=== PATIENT | male | born 1980 | race Caucasian/White ===

== ENCOUNTER → 2020-05-06 07:49 | Outpatient (CLI) | payer OTHER, SELFPAY ==
--- NOTE | 2020-05-06 | DI.MRI.S_ITS ---
PROCEDURE: MR CERVICAL SPINE WO CON INDICATIONS: Cervicalgia TECHNIQUE: Noncontrast sagittal T1 spin echo and T2 fast spin echo, sagittal STIR, foraminal oblique sagittal T2 fast spin echo, and axial gradient echo or T2 fast spin echo through the cervical spine. COMPARISON: None. FINDINGS: Image quality: Excellent. Alignment and Curvature: There is normal bony alignment. Bone Marrow: Marrow demonstrates normal overall signal. Spinal Cord: Visualized spinal cord has normal size and signal. No cerebellar tonsillar herniation. Paraspinous Soft Tissues: No paravertebral masses. Prevertebral soft tissues are normal in thickness. C2-C3: Loss of disc signal. No central stenosis. No neural foraminal narrowing. No neural compression. C3-C4: Loss of disc signal. Mild, diffuse disc bulge. No central stenosis. Mild bilateral neural foraminal narrowing. No neural compression. C4-C5: Loss of disc signal and slight loss of disc height. Mild, diffuse disc bulge. Left central /left foraminal disc extrusion. Moderate narrowing of the central canal. Extruded disc material impinges upon the exiting left C5 nerve root. Moderate right and severe left neural foraminal narrowing. C5-C6: Loss of disc signal and slight loss of disc height. Mild, diffuse disc bulge. Moderate-sized central/right central disc extrusion. Extruded disc material causes severe central canal narrowing and compression of the cervical spinal cord. Moderate bilateral neural foraminal narrowing. C6-C7: Loss of disc signal. Mild, diffuse disc bulge. Small right central disc protrusion. Moderate narrowing of the central canal. Moderate bilateral neural foraminal narrowing. No neural compression. C7-T1: Normal appearance. IMPRESSION: 1. Multilevel degenerative disease. 2. C4-C5 left central/left foraminal disc extrusion which impinges on the exiting left C5 nerve root. 3. C5-C6 central/right central disc extrusion which causes severe central canal narrowing and compression of the cervical spinal cord. Dictated by: Rebekah Shelton MD, PhD on 05/06/2020 at 11:46 Approved by: Rebekah Shelton MD, PhD on 05/06/2020 at 12:49
== END ==
PROVIDERS: Referring Provider Student in an Organized Health Care Education/Training Program; Visit Provider Student in an Organized Health Care Education/Training Program
DX: M50.31 Other cervical disc degeneration, high cervical region (principal); M50.221 Other cervical disc displacement at C4-C5 level; M48.02 Spinal stenosis, cervical region
CPT/HCPCS: 72141

== ENCOUNTER 2021-04-02 15:43 | Emergency (ER) | payer OTHER, SELFPAY ==
[2021-04-02 15:57] VITALS: BP 122/78; PULSE 88; RESP 16; TEMP 37.3; O2SAT 96; BMI 26.0
--- NOTE | 2021-04-02 16:02 | DI.RAD.S_ITS ---
PROCEDURE: XR FOOT RT MIN 3V INDICATIONS: Dropped tailgate on foot TECHNIQUE: 3 views of the foot were acquired. COMPARISON: None. FINDINGS: Bones: No fractures or dislocations. Joint spaces are preserved. No suspicious bony lesions. Soft tissues: No tibiotalar joint effusion. Achilles tendon appears normal. IMPRESSION: No acute bony abnormality. Dictated by: Gonzalo Avila M.D. on 04/02/2021 at 15:27 Approved by: Gonzalo Avila M.D. on 04/02/2021 at 15:29
--- NOTE | 2021-04-02 16:49 | ED_ITS ---
HPI - Extremity Injury (Lower) <MONIK Luna Last Filed: 04/02/21 17:04> General Chief Complaint: Extremity Injury, Lower Stated Complaint: Poss RT Foot Break Time Seen by Provider: 04/02/21 16:04 Source: patient Mode of arrival: Ambulatory Limitations: no limitations History of Present Illness HPI Narrative: 40-year-old male with no significant past medical history presents to the ED status post a right foot injury just prior to arrival. Patient endorses dropping a tailgate on the dorsum of his right foot. Patient endorses midfoot pain. Endorses that he was able to ambulate after the injury. Endorses full range of motion. Denies numbness, tingling, weakness. Denies any other injuries. Related Data Allergies Allergy/AdvReac Type Severity Reaction Status Date / Time codeine Allergy Verified 04/02/21 16:39 Review of Systems <MONIK Luna Last Filed: 04/02/21 17:04> Constitutional Constitutional: Denies chills, Denies fever(s), Denies frequent falls, Denies lethargy and Denies weakness ENT Ears, Nose, Mouth, and Throat: Denies dizziness Cardiovascular Cardiovascular: Denies chest pain, Denies irregular heart rhythm, Denies lightheadedness, Denies palpitations, Denies dyspnea, Denies dyspnea on exertion and Denies orthopnea Respiratory Respiratory: Denies cough, Denies dyspnea, Denies dyspnea on exertion and Denies wheezing Gastrointestinal Gastrointestinal: Denies abdominal pain, Denies change in bowel habits, Denies diarrhea, Denies nausea and Denies vomiting Musculoskeletal Musculoskeletal: Denies numbness Comments: R foot pain. No tingling, weakness, numbness Integumentary/Breasts Skin/Breast: Denies pruritus, Denies erythema, Denies rash and Denies wounds Neurologic Neurologic: Denies behavioral changes, Denies confusion, Denies dizziness, Denies frequent falls, Denies numbness and Denies weakness Psychiatric Psychiatric: Denies behavioral changes and Denies confusion Endocrine Endocrine: Denies palpitations Allergic/Immunologic Allergic/Immunologic: Denies wheezing Patient History <MONIK Luna Last Filed: 04/02/21 17:04> Social History Smoking Status: Current every day smoker Smoking Status: Current every day smoker tobacco type: vaping alcohol intake frequency: 0-2 drinks per day Substance Use Type: does not use Exam <MONIK Luna Last Filed: 04/02/21 17:04> Initial Vital Signs Initial Vital Signs: Vital Signs Temperature 99.1 F 04/02/21 15:57 Pulse Rate 88 04/02/21 15:57 Respiratory Rate 16 04/02/21 15:57 Blood Pressure 122/78 04/02/21 15:57 Pulse Oximetry 96 04/02/21 15:57 Const General: cooperative Resp Effort & Inspection: normal respiratory effort, able to speak in complete sentences, no respiratory distress and no use of accessory muscles Auscultation: clear to auscultation bilaterally, no rales, no rhonchi and no wheezes Cardio Rate: regular rate Rhythm: regular rhythm Heart Sounds: no click, no gallops, no murmurs and no rubs Pulses: normal peripheral pulses Skin General: no rashes or lesions noted, No jaundice and No petechiae Neuro General: patient alert, patient oriented x3, gait normal and no focal motor deficits Speech: speech normal Extrem General: full ROM, no clubbing, cyanosis or edema, no pedal edema and no calf tenderness Other: R foot TTP on dorsal midfoot. Neurovascularly intact. Cap refill < 2 sec. Strength and sensation intact. No swelling, bruising, erythema, deformities. FROM. <Aletha Lerner DO - Last Filed: 04/03/21 07:37> Initial Vital Signs Initial Vital Signs: Vital Signs Temperature 99.1 F 04/02/21 15:57 Pulse Rate 88 04/02/21 15:57 Respiratory Rate 16 04/02/21 15:57 Blood Pressure 122/78 04/02/21 15:57 Pulse Oximetry 96 04/02/21 15:57 Course <MONIK Luna Last Filed: 04/02/21 17:04> Course Course Narrative: X-rays negative for fracture/dislocation. DC home with PCP referral. Orders Ordered: Discontinued Medications Ibuprofen (Ibuprofen 400 Mg Tablet) 800 mg PO NOW ONE Stop: 04/02/21 16:32 Last Admin: 04/02/21 16:52 Dose: 800 mg Documented by: WINDY Vital Signs Vital signs: Vital Signs - 8 hr 04/02/21 15:57 Temperature 99.1 F Pulse Rate 88 Respiratory Rate 16 Blood Pressure 122/78 Pulse Oximetry 96 <Aletha Lerner DO - Last Filed: 04/03/21 07:37> Orders Ordered: Discontinued Medications Ibuprofen (Ibuprofen 400 Mg Tablet) 800 mg PO NOW ONE Stop: 04/02/21 16:32 Last Admin: 04/02/21 16:52 Dose: 800 mg Documented by: WINDY Vital Signs Vital signs: Vital Signs - 8 hr 04/02/21 15:57 Temperature 99.1 F Pulse Rate 88 Respiratory Rate 16 Blood Pressure 122/78 Pulse Oximetry 96 MDM - Extremity Injury (Lower) <Jcakie Brooks PA-C - Last Filed: 04/02/21 17:04> Imaging Data Extremity x-ray #1: Radiologist's Impression: PROCEDURE: XR FOOT RT MIN 3V INDICATIONS: Dropped tailgate on foot TECHNIQUE: 3 views of the foot were acquired. COMPARISON: None. FINDINGS: Bones: No fractures or dislocations. Joint spaces are preserved. No suspicious bony lesions. Soft tissues: No tibiotalar joint effusion. Achilles tendon appears normal. IMPRESSION: No acute bony abnormality. Dictated by: Gonzalo Avila M.D. on 04/02/2021 at 15:27 Approved by: Gonzalo Avila M.D. on 04/02/2021 at 15:[address] [facility] Narrative Medical decision making narrative: 40-year-old male with no significant past medical history presents to the ED status post a right foot injury just prior to arrival. Concern for fracture/dislocation. We will order x-ray of the right foot. Will give ibuprofen for pain. Likely discharge home with PCP and Ortho referral. Discharge Plan Departure Patient Disposition: Home Clinical Impression: Injury of foot, right Qualifiers: Encounter type: initial encounter Qualified Code(s): S99.921A - Unspecified injury of right foot, initial encounter Activity Restrictions/Additional Instructions: X-rays negative for fractures or dislocations or tendon injuries. Use rest, ice, compression, elevation. May use ibuprofen for pain control. Follow-up with your primary care provider in 2 days. Return to the ED if pain worsens or you experience numbness, tingling, weakness. Referrals: [facility] [Outside] - 3-5 days (F/u with a PCP) <Aletha Lerner DO - Last Filed: 04/03/21 07:37> Sign Out Provider Sign Out Attestation: I was immediately available in the department for consultation. Documentation has been reviewed. I agree with assessment and plan.
[2021-04-02] MEDS: IBUPROFEN 400 MG TABLET 800 MG PO (16:52)
== END 2021-04-02 17:32 | disposition home or self-care (01) ==
PROVIDERS: Emergency Provider Student in an Organized Health Care Education/Training Program
DX: S99.921A Unspecified injury of right foot, initial encounter (principal); W22.8XXA Striking against or struck by other objects, initial encounter
CPT/HCPCS: 73630; 99283

== ENCOUNTER → 2024-02-20 16:02 | Outpatient (CLI) | payer OTHER, SELFPAY ==
--- NOTE | 2024-02-20 16:05 | DI.RAD.S_ITS ---
PROCEDURE: XR LUMBAR SPINE 2-3V INDICATIONS: BACK PAIN TECHNIQUE: 3 views of the lumbar spine were acquired. COMPARISON: None. FINDINGS: Bones: 5 [id number] vertebrae are present. There is normal bony alignment. Mild disc No vertebral body compression fractures. No suspicious bony lesions. Soft tissues: Overlying bowel gas pattern is normal. No suspicious soft tissue calcifications. IMPRESSION: No acute bony abnormality. Dictated by: Consuelo Carter M.D. on 02/20/2024 at 17:36 Approved by: Consuelo Carter M.D. on 02/20/2024 at 17:38
== END ==
PROVIDERS: PCP Family Medicine; Referring Provider Family Medicine; Visit Provider Family Medicine
DX: M54.32 Sciatica, left side (principal); M54.9 Dorsalgia, unspecified
CPT/HCPCS: 72100